=== PATIENT | male | born 1970 | race Caucasian/White ===

== ENCOUNTER 2024-08-17 06:24 | Day surgery (SDC) | payer BC, SELFPAY | END 2024-08-17 09:31 | disposition home or self-care (01) | LOC: GI 06:24 | PROVIDERS: ATTENDING PHYSICIAN Internal Medicine Gastroenterology | DX: Z12.11 Encounter for screening for malignant neoplasm of colon (principal); K64.8 Other hemorrhoids; K44.9 Diaphragmatic hernia without obstruction or gangrene; K22.89 Other specified disease of esophagus; K29.70 Gastritis, unspecified, without bleeding; K21.9 Gastro-esophageal reflux disease without esophagitis; D12.2 Benign neoplasm of ascending colon; K29.50 Unspecified chronic gastritis without bleeding; K22.70 Barrett's esophagus without dysplasia; K20.0 Eosinophilic esophagitis | CPT/HCPCS: 45385; 43239; 88305; 88342 ==